=== PATIENT | male | born 1995 | race African-American/Black ===

== ENCOUNTER 2018-01-08 12:20 | Emergency (ER) | payer SELFPAY ==
[2018-01-08 12:29] VITALS: BP 120/79
--- NOTE | 2018-01-08 13:37 | ER Document Report ---
HPI - HPI Patient complains to provider of: exposed to gonorrhea Onset: Last week Quality of pain: No pain Severity: None Pain Level: 0 Context: 22 yo male told by female partner that he needed to be tx ro gonnorrhea. No penile d/c or groing/testicle pain. No selling. No pelvic pain. No fever. Associated Symptoms: None Exacerbated by: Denies Relieved by: Denies Similar symptoms previously: No Recently seen / treated by doctor: No - ROS ROS below otherwise negative: Yes Systems Reviewed and Negative: Yes All other systems reviewed and negative Past Medical History - General Information source: Patient - Social History Smoking Status: Current Every Day Smoker Chew tobacco use (# tins/day): No Frequency of alcohol use: None Drug Abuse: None Family History: Reviewed & Not Pertinent Patient has suicidal ideation: No Patient has homicidal ideation: No - Medical History Medical History: Negative Renal/ Medical History: Denies: Hx Peritoneal Dialysis Surgical Hx: Negative Vertical Provider Document - CONSTITUTIONAL Agree With Documented VS: Yes Exam Limitations: No Limitations General Appearance: No Apparent Distress - INFECTION CONTROL TRAVEL OUTSIDE OF THE [place] IN LAST 30 DAYS: No - HEENT HEENT: Normocephalic - NECK Neck: Supple - RESPIRATORY O2 Sat by Pulse Oximetry: 98 - GI/ABDOMEN Gastrointestinal: Abdomen Soft, Abdomen Non-Tender - BACK Back: Normal Inspection. negative: CVA Tenderness-Right, CVA Tenderness-Left - NEURO Level of Consciousness: Awake, Alert Course - Vital Signs Vital signs: Temp Pulse Resp BP Pulse Ox 99.0 F 86 16 120/79 98 01/08/18 12:28 01/08/18 12:28 01/08/18 12:28 01/08/18 12:28 01/08/18 12:28 Discharge - Discharge Clinical Impression: Exposure to gonorrhea Condition: Good Disposition: HOME, SELF-CARE Instructions: Azithromycin ([facility]), Gonorrhea ([facility]), Rocephin ([facility]) Additional Instructions: Call me in 2 hours for the STD culture results at [phone] You have been treated for both gonorrhea and chlamydia Return to the emergency room any concerns Forms: Return to Work
[2018-01-08 14:04] LABS: AMORPHOUS SEDIMENT,URINE TRACE /HPF; APPEARANCE,URINE CLEAR; BILIRUBIN,URINE NEGATIVE (NEGATIVE); COLOR,URINE YELLOW; GLUCOSE, URINE NEGATIVE (NEGATIVE); KETONES,URINE TRACE mg/dL (NEGATIVE); LEUKOCYTE ESTERASE,URINE NEGATIVE (NEGATIVE); NITRITE,URINE NEGATIVE (NEGATIVE); PROTEIN,URINE NEGATIVE (NEGATIVE); URINE SPECIFIC GRAVITY 1.027
[2018-01-08] MEDS ORDERED: CEFTRIAXONE INJ 250 MG VIAL IM ONE (14:47)
[2018-01-08] MEDS ORDERED: LIDOCAINE 1% INJ-PF (10 MG/ML) 30 ML SDV INJ ONE (14:47)
[2018-01-08] MEDS ORDERED: ONDANSETRON 4 MG TAB.RAPDIS PO ONE (14:49)
[2018-01-08] MEDS ORDERED: AZITHROMYCIN 250 MG TABLET PO ONE (14:49)
[2018-01-08 15:27] LABS: CHLAM PCR NOT DETECTED (NOT DETECT); GON PCR NOT DETECTED (NOT DETECT)
== END 2018-01-08 15:28 | disposition home or self-care (01) ==
LOC: ER 12:20
DX: Z20.2 Contact with and (suspected) exposure to infections with a predominantly sexual mode of transmission (principal); F17.200 Nicotine dependence, unspecified, uncomplicated
CPT/HCPCS: 99283; 96372; 81001; 87491; 87591; S0119; J3490; J0696